=== PATIENT | male | born 1965 | race Caucasian/White ===

== ENCOUNTER 2020-05-22 08:21 | Day surgery (SDC) | payer OTHER, SELFPAY ==
[~2020-05-22] VITALS: Ht 170.2 cm; Wt 84.8 kg
[2020-05-22] MEDS ORDERED: fentaNYL citrate 0.05 MG/ML VIAL ONE (09:06)
[2020-05-22] MEDS ORDERED: LIDOCAINE 2% 100 MG/5 ML UJET TP ONE (09:06)
[2020-05-22] MEDS ORDERED: fentaNYL citrate 0.05 MG/ML VIAL IVP ONE (11:20)
== END 2020-05-22 10:55 | disposition home or self-care (01) ==
LOC: MDS 08:21 → MMU 08:23 → MDS 10:55
PROVIDERS: ATTEND Internal Medicine Gastroenterology
DX: K62.5 Hemorrhage of anus and rectum (principal); K62.89 Other specified diseases of anus and rectum; E66.9 Obesity, unspecified; Z68.34 Body mass index [BMI] 34.0-34.9, adult; Z87.891 Personal history of nicotine dependence; Z79.82 Long term (current) use of aspirin; Z79.899 Other long term (current) drug therapy; Z20.828 Contact with and (suspected) exposure to other viral communicable diseases
CPT/HCPCS: 45378; J3010; U0003

== ENCOUNTER 2022-06-24 07:23 | Day surgery (SDC) | payer OTHER ==
[~2022-06-24] VITALS: Ht 182.9 cm; Wt 88.5 kg
[2022-06-24] MEDS ORDERED: fentaNYL citrate 0.05 MG/ML VIAL ONE (08:03)
[2022-06-24] MEDS ORDERED: LIDOCAINE 2% 100 MG/5 ML UJET TP ONE (08:03)
[2022-06-24] MEDS ORDERED: fentaNYL citrate 0.05 MG/ML VIAL IVP ONE (09:00)
== END 2022-06-24 09:30 | disposition home or self-care (01) ==
LOC: MDS 07:23 → MMU 07:24 → MDS 09:30
PROVIDERS: ATTEND Internal Medicine Gastroenterology
DX: R19.7 Diarrhea, unspecified (principal); I10 Essential (primary) hypertension; E11.9 Type 2 diabetes mellitus without complications; E78.5 Hyperlipidemia, unspecified; Z95.0 Presence of cardiac pacemaker; Z79.82 Long term (current) use of aspirin; Z79.899 Other long term (current) drug therapy; Z20.822 Contact with and (suspected) exposure to COVID-19
CPT/HCPCS: 45378; 87426; J3010